=== PATIENT | male | born 1950 | race Caucasian/White ===

== ENCOUNTER 2017-02-04 15:22 | Emergency (ER) | payer MEDICARE, OTHER ==
[2017-02-04 15:31] VITALS: BP 119/97
[2017-02-04] MEDS ORDERED: fentaNYL 100 MCG/2 ML SDV IVPUSH ONE (15:41)
[2017-02-04] MEDS ORDERED: Nitroglycerin/D5W 25 MG/250 ML BOTTLE IV SCH (15:45)
--- NOTE | 2017-02-04 15:45 | EDM.PDOC ---
<Eugene Valentin - Last Filed: 02/04/17 21:41> ED HPI GENERAL MEDICAL PROBLEM - General Chief Complaint: Chest Pain Stated Complaint: [facility] Time Seen by Provider: 02/04/17 15:35 - Related Data Allergies Allergy/AdvReac Type Severity Reaction Status Date / Time No Known Allergies Allergy Verified 02/04/17 15:42 Home Meds: Home Meds Acetaminophen/Butalbital/Caff [Fioricet 325-50-40 MG] 1 tab PO BID PRN 02/04/17 [History] Albuterol Sulfate [Proair Respiclick] 1 dose INH ASDIRECTED PRN 02/04/17 [ History] Allopurinol [Zyloprim] 1 tab PO DAILY 02/04/17 [History] Budesonide/Formoterol Fumarate [Symbicort 160-4.5 Mcg Inhaler] 2 inh INH BID 11/16 [History] Cholecalciferol (Vitamin D3) [Vitamin D3] 1 tab PO DAILY 02/04/17 [History] Diazepam [Valium] 10 mg PO BID PRN 02/04/17 [History] Doxycycline [Vibramycin] 100 mg PO BID #20 cap 02/04/17 [Rx] Famotidine [Pepcid] 20 mg PO BID 02/04/17 [History] Morphine 1 tab PO TID 02/04/17 [History] Omeprazole 1 tab PO DAILY 02/04/17 [History] Ondansetron HCl [Zofran] 1 tab PO Q8HR PRN 02/04/17 [History] QUEtiapine [SEROquel] 1 tab PO BEDTIME 02/04/17 [History] Simvastatin [Zocor] 1 tab PO DAILY 02/04/17 [History] Tiotropium [Spiriva HandiHaler] 1 puff INH DAILY 02/04/17 [History] Course - Vital Signs Last Recorded V/S: Last Vital Signs Temp 37.2 C 02/04/17 15:25 Pulse 100 02/04/17 15:25 Resp 13 02/04/17 15:25 BP 119/97 H 02/04/17 15:25 Pulse Ox 92 L 02/04/17 15:25 - Orders/Labs/Meds Orders: Active Orders 24 hr Category Date Time Status EKG Documentation Completion [RC] STAT Care 02/04/17 15:41 Active EKG Documentation Completion [RC] STAT Care 02/04/17 17:00 Active Abdomen 1V Flat [CR] Stat Exams 02/04/17 20:01 Taken Chest 1V Frontal [CR] Stat Exams 02/04/17 15:41 Taken Labs: Laboratory Tests 02/04/17 02/04/17 02/04/17 Range/Units 15:50 15:50 15:50 WBC 8.93 (4.23-9.07) K/mm3 RBC 3.72 L (4.63-6.08) M/mm3 Hgb 11.3 L (13.7-17.5) gm/L Hct 35.2 L (40.1-51.0) % MCV 94.6 H (79.0-92.2) fl MCH 30.4 (25.7-32.2) pg MCHC 32.1 L (32.2-35.5) g/dl RDW Std Deviation 47.2 H (35.1-43.9) fL Plt Count 195 (163-337) K/mm3 MPV 9.1 L (9.4-12.3) fl Neutrophils % (Manual) 82 H (40-60) % Band Neutrophils % 0 (0-10) % Lymphocytes % (Manual) 16 L (20-40) % Atypical Lymphs % 0 % Monocytes % (Manual) 2 (2-10) % Eosinophils % (Manual) 0 L (0.8-7.0) % Basophils % (Manual) 0 L (0.2-1.2) Platelet Estimate Adequate RBC Morph Comment Normal PT 10.4 (8.0-13.0) SECONDS INR 0.96 Sodium 141 (136-145) mEq/L Potassium 4.1 (3.5-5.1) mEq/L Chloride 107 (98-107) mEq/L Carbon Dioxide 27 (21-32) mEq/L Anion Gap 11.1 (5-15) BUN 21 H (7-18) mg/dL Creatinine 1.1 (0.7-1.3) mg/dL Est Cr Clr Drug Dosing 53.69 mL/min Estimated GFR (MDRD) > 60 (>60) mL/min BUN/Creatinine Ratio 19.1 H (14-18) Glucose 123 H (80-115) mg/dL Calcium 9.3 (8.5-10.1) mg/dL Total Bilirubin 0.8 (0.2-1.0) mg/dL AST 60 H (15-37) U/L ALT 54 (16-63) U/L Alkaline Phosphatase 92 (46-116) U/L CK-MB (CK-2) 4.2 H (0-3.6) ng/ml Troponin I < 0.017 (0.00-0.056) ng/mL Rpn-F-Tpvvcyovghs Pept 68 (0-125) pg/mL Total Protein 6.9 (6.4-8.2) g/dl Albumin 3.9 (3.4-5.0) g/dl Globulin 3.0 gm/dL Albumin/Globulin Ratio 1.3 (1-2) Urine Color (Yellow) Urine Appearance (Clear) Urine pH (5.0-8.0) Ur Specific [place] (1.005-1.030) Urine Protein (Negative) Urine Glucose (UA) (Negative) Urine Ketones (Negative) Urine Occult Blood (Negative) Urine Nitrite (Negative) Urine Bilirubin (Negative) Urine Urobilinogen (0.2-1.0) Ur Leukocyte Esterase (Negative) Urine RBC (0-5) /hpf Urine WBC (0-5) /hpf Ur Epithelial Cells (0-5) /hpf Urine Bacteria (FEW) /hpf Urine Mucus (FEW) /hpf 02/04/17 02/04/17 Range/Units 16:46 18:08 WBC (4.23-9.07) K/mm3 RBC (4.63-6.08) M/mm3 Hgb (13.7-17.5) gm/L Hct (40.1-51.0) % MCV (79.0-92.2) fl MCH (25.7-32.2) pg MCHC (32.2-35.5) g/dl RDW Std Deviation (35.1-43.9) fL Plt Count (163-337) K/mm3 MPV (9.4-12.3) fl Neutrophils % (Manual) (40-60) % Band Neutrophils % (0-10) % Lymphocytes % (Manual) (20-40) % Atypical Lymphs % % Monocytes % (Manual) (2-10) % Eosinophils % (Manual) (0.8-7.0) % Basophils % (Manual) (0.2-1.2) Platelet Estimate RBC Morph Comment PT (8.0-13.0) SECONDS INR Sodium (136-145) mEq/L Potassium (3.5-5.1) mEq/L Chloride (98-107) mEq/L Carbon Dioxide (21-32) mEq/L Anion Gap (5-15) BUN (7-18) mg/dL Creatinine (0.7-1.3) mg/dL Est Cr Clr Drug Dosing mL/min Estimated GFR (MDRD) (>60) mL/min BUN/Creatinine Ratio (14-18) Glucose (80-115) mg/dL Calcium (8.5-10.1) mg/dL Total Bilirubin (0.2-1.0) mg/dL AST (15-37) U/L ALT (16-63) U/L Alkaline Phosphatase (46-116) U/L CK-MB (CK-2) 3.0 (0-3.6) ng/ml Troponin I < 0.017 (0.00-0.056) ng/mL Xcw-P-Mkxirfijnqw Pept (0-125) pg/mL Total Protein (6.4-8.2) g/dl Albumin (3.4-5.0) g/dl Globulin gm/dL Albumin/Globulin Ratio (1-2) Urine Color Yellow (Yellow) Urine Appearance Slt cloudy H (Clear) Urine pH 6.5 (5.0-8.0) Ur Specific [place] 1.025 (1.005-1.030) Urine Protein Negative (Negative) Urine Glucose (UA) Negative (Negative) Urine Ketones Negative (Negative) Urine Occult Blood Negative (Negative) Urine Nitrite Negative (Negative) Urine Bilirubin Negative (Negative) Urine Urobilinogen 1.0 (0.2-1.0) Ur Leukocyte Esterase Negative (Negative) Urine RBC 0-5 (0-5) /hpf Urine WBC 0-5 (0-5) /hpf Ur Epithelial Cells 0-5 (0-5) /hpf Urine Bacteria Occasional (FEW) /hpf Urine Mucus Not seen (FEW) /hpf Meds: Medications Discontinued Medications Generic Name Dose Route Start Last Admin Trade Name Freq PRN Reason Stop Dose Admin Doxycycline Hyclate 100 mg 02/04/17 20:36 02/04/17 21:21 Vibramycin PO 08/05/17 20:37 100 mg ONETIME ONE Administration Fentanyl 50 mcg 02/04/17 15:41 02/04/17 15:52 Sublimaze IVPUSH 02/04/17 15:42 50 mcg ONETIME ONE Administration Nitroglycerin/Dextrose 25 mg in 250 mls @ 3 mls/hr 02/04/17 15:45 02/04/17 17 :00 Nitroglycerin 25 Mg/D5w 250 Ml IV 5 mcg/min ASDIRECTED YURI 3 mls/hr 5 MCG/MIN Infusion Lorazepam 0.5 mg 02/04/17 17:00 02/04/17 17:20 Ativan IVPUSH 02/04/17 17:01 0.5 mg ONETIME ONE Administration Ondansetron HCl 4 mg 02/04/17 19:07 02/04/17 19:12 Zofran IVPUSH 02/04/17 19:08 4 mg ONETIME ONE Administration - Re-Assessments/Exams Free Text/Narrative Re-Assessment/Exam: 02/04/17 20:39 Signed out to me by Dr. Briscoe. KUB shows evidence of R illiac stent, no evidence of obstruction. Patient feeling better, ate a meal. HR approx 70. Well appearing. No further chest pain. Labs reassuring. He did show me an area on his L hand and L pretibial surface where he has abrasions from a fall. There is about 4 cm surrounding erythema/TTP in both areas concerning for early cellulitis - will treat. No SIRS criteria. Discussed return precautions. Departure - Departure Time of Disposition: 20:37 Disposition: Home, Self-Care 01 Clinical Impression: Unstable angina, Cellulitis of left leg without foot Prescriptions: Doxycycline [Vibramycin] 100 mg PO BID #20 cap Instructions: Angina Pectoris, [id number] Referrals: PCP,Not In Area [Primary Care Provider] - Forms: ED Department Discharge Additional Instructions: Evaluation in the emergency room today in regards to development of left precordial chest pain while you were in [place] today. He was kept in the hospital for the last 5 hours to rule out any heart condition since there is a history of coronary disease with multiple myocardial infarctions reported by you and at least 2 stents placed in the past. Cardiac markers are negative over the last 5 hours for any signs of heart related illness certainly no signs of heart attack. Since you're complaining of feeling funny in the head and feeling somewhat dizzy CT of the head was performed and reveals no evidence of intracranial problem such as bleeding or swelling or evidence of stroke. Therefore the nitroglycerin drip that she had been on was stopped which should improve your head ache and had symptoms. You'll be released from the hospital with the idea that you can sleep in your moving van tonight on when you feel better. There are no indications at this time to keep you in the hospital as no emergency condition has been identified. All of your other lab tests proved to be normal. - My Orders Last 24 Hours: My Active Orders 02/04/17 15:41 EKG Documentation Completion [RC] STAT Chest 1V Frontal [CR] Stat 02/04/17 17:00 EKG Documentation Completion [RC] STAT 02/04/17 20:01 Abdomen 1V Flat [CR] Stat - Assessment/Plan Last 24 Hours: My Active Orders 02/04/17 15:41 EKG Documentation Completion [RC] STAT Chest 1V Frontal [CR] Stat 02/04/17 17:00 EKG Documentation Completion [RC] STAT 02/04/17 20:01 Abdomen 1V Flat [CR] Stat <Dagoberto Briscoe - Last Filed: 02/05/17 11:09> ED HPI GENERAL MEDICAL PROBLEM - General Source of Information: Reports: Patient, EMS Notes Reviewed - History of Present Illness INITIAL COMMENTS - FREE TEXT/NARRATIVE: 66-year-old male from [facility] apparently visiting out in [place]. Presents per ambulance reporting central precordial chest pressure pain since about 10:30 this morning. He is a very vague and very poor historian. Has a history of congestive heart failure due to ischemic cardiomyopathy. Has had 2 myocardial infarctions by his history. Has [address] Last stent was placed about a year ago. He uses nitroglycerin patches on intermittent basis when he develops chest pain. Seems to have unstable angina. Currently has a 0.4 g per hour patch in place mid anterior chest on the hairy area of his chest which is not likely doing much good. He was given 224 mg aspirin should by paramedics. He was given Zofran 4 mg IV because of vomiting. Patient states that he is quite thin because he is unable to eat due to gastric ulcers. He is no longer on anticoagulants. There are stopped because of anemia development. Recent colonoscopy took about 3 polyps which were benign. Apparently upper GI endoscopy done within the last 2 months revealed peptic ulcer disease. He is not sure which arteries were involved in terms of myocardial infarction. Still smokes a pack of cigarettes every 3 days. Continues to have cough intermittently had noted some hemoptysis. No blood in his stool. Of note the patient is very cachectic in appearance. He is stressed an [employer] fatigues. Reports current pain is 8 out of 10 left precordial chest. Feels similar to what is expressed in the past with myocardial infarctions. ECG done by triage nurse shows sinus rhythm at 92/m. There is initial poor R-wave progression. The baseline is severely wandering in the inferior leads making them useless in terms of ability to analyze for inferior wall infarct. Onset: Today Onset Date: 02/04/17 Onset Time: 10:30 Duration: Hour(s): Location: Reports: Chest (Left precordial chest pain with no radiation to neck shoulder or through to his back.) Quality: Reports: Ache, Pressure Severity: Moderate Improves with: Reports: None (Rates current pain is 7-8 out of 10.) Worsens with: Reports: None Context: Reports: Other (Has not been very active yet today.). Denies: Activity , Exercise, Lifting, Sick Contact, Trauma Associated Symptoms: Reports: Chest Pain, Cough (See history of present illness) , Loss of Appetite ( chronic cough with sputum due to smoking. poor appetite due to stomach problems. Can't eat much early satiety. ), Malaise, Nausea/ Vomiting, Shortness of Breath (Did vomit en route to hospital. No blood noted in emesis bilious only. On exertion due to COPD. Still smokes 10 cigarettes daily). Denies: Confusion, Fever/Chills Treatments CRUMB PACKER: Reports: Aspirin (Was given 324 mg of aspirin per paramedics as well as Zofran 4 mg IV.) Left Lower Chest Pain Score (Numeric/FACES): 6 Past Medical History Cardiovascular History: Reports: CAD (Due to ischemia.), Cardiomyopathy, High Cholesterol, [place] (Reports greater than 3 myocardial infarctions.), Stents ( 2 stents) Respiratory History: Reports: Bronchitis, Recurrent, COPD Gastrointestinal History: Reports: GI Bleed (Peptic ulcer disease), Other (See Below) (3 polyps removed from colon on last colonoscopy within the last 2 months.) Musculoskeletal History: Reports: Osteoarthritis, Osteoporosis Neurological History: Reports: CVA (Reports he was been told that he has had multiple cerebrovascular accidents on MRI.) Social & Family History - Tobacco Use Smoking Status *Q: Current Every Day Smoker (Early smoking a pack every 3 days.) ED ROS GENERAL - Review of Systems Review Of Systems: See Below Constitutional: Reports: Malaise, Weakness, Fatigue, Decreased Appetite ( Reports reports early satiety can eat much because his stomach bothers him too much.), Weight Loss. Denies: Fever, Chills HEENT: Reports: No Symptoms Respiratory: Reports: Shortness of Breath, Wheezing (Occasionally uses inhalers. ), Cough, Sputum (Chronically), Hemoptysis (Occasionally) Cardiovascular: Reports: Chest Pain (See history of present illness), Blood Pressure Problem, Dyspnea on Exertion (Chronically), Lightheadedness. Denies: Claudication, Edema, Orthopnea (Usually blood pressure is low due to medications he is on) Endocrine: Reports: Fatigue GI/Abdominal: Reports: Abdominal Pain (Upper abdominal pain good portion of the time. Worsened by eating), Decreased Appetite, Nausea, Vomiting (Vomited en route to the hospital bilious without blood) : Reports: Frequency Musculoskeletal: Reports: Neck Pain, Back Pain, Joint Pain (Hips and knees at times) Skin: Reports: No Symptoms Neurological: Reports: Dizziness, Weakness (Generalized). Denies: Confusion, Headache, Numbness, Paresthesia, Pre-Existing Deficit, Seizure, Syncope, Tingling, Tremors, Trouble Speaking, Difficulty Walking Hematologic/Lymphatic: Reports: Anemia Immunologic: Reports: No Symptoms ED EXAM, GENERAL - Physical Exam Exam: See Below Exam Limited By: Other (Very vague and poor historian.) General Appearance: Mild Distress, Cachetic Eye Exam: Bilateral Eye: Normal Inspection Throat/Mouth: Other Head: Atraumatic, Normocephalic (Tongue is mildly dry and coated) Neck: Normal Inspection, Supple, Non-Tender, Full Range of Motion. No: Carotid Bruit, Lymphadenopathy (L), Lymphadenopathy (R), Thyromegaly Respiratory/Chest: No Respiratory Distress, Lungs Clear, Normal Breath Sounds, Chest Non-Tender. No: Rhonchi, Wheezing Cardiovascular: Normal Peripheral Pulses, Regular Rate, Rhythm, No Edema, No Gallop, No Murmur Peripheral Pulses: 2+: Posterior Tibial (L), Posterior Tibial (R), Dorsalis Pedis (L), Dorsalis Pedis (R) GI/Abdominal: Normal Bowel Sounds, Tender. No: Distended (Epigastrium.), Guarding, Rigid, Rebound, Abnormal Bowel Sounds, Hernia Back Exam: Normal Inspection, Full Range of Motion. No: CVA Tenderness (L), CVA Tenderness (R) Extremities: Normal Inspection, Normal Range of Motion, Non-Tender, No Pedal Edema Neurological: Alert, Oriented, CN II-XII Intact, Normal Cognition, Normal Gait Psychiatric: Anxious, Flat Affect Skin Exam: Warm, Dry, Intact, Normal Color, No Rash EKG INTERPRETATION EKG Date: 02/04/17 Time: 15:30 Rhythm: NSR Rate (Beats/Min): 96 Mccormick: RAD-Right Mccormick Deviation (Borderline at 87.) P-Wave: Present QRS: Other (Initial poor R-wave progression.) ST-T: Other (Wondering baseline particularly in leads II, III, and F aVF make it impossible to utilize these leads for analysis. Questionable ST segment elevation in aVF and 3.) QT: Normal Course - Orders/Labs/Meds Orders: Active Orders 24 hr Category Date Time Status EKG Documentation Completion [RC] STAT Care 02/04/17 15:41 Active EKG Documentation Completion [RC] STAT Care 02/04/17 17:00 Active Abdomen 1V Flat [CR] Stat Exams 02/04/17 20:01 Taken Chest 1V Frontal [CR] Stat Exams 02/04/17 15:41 Taken Labs: Laboratory Tests 02/04/17 02/04/17 02/04/17 Range/Units 15:50 15:50 15:50 WBC 8.93 (4.23-9.07) K/mm3 RBC 3.72 L (4.63-6.08) M/mm3 Hgb 11.3 L (13.7-17.5) gm/L Hct 35.2 L (40.1-51.0) % MCV 94.6 H (79.0-92.2) fl MCH 30.4 (25.7-32.2) pg MCHC 32.1 L (32.2-35.5) g/dl RDW Std Deviation 47.2 H (35.1-43.9) fL Plt Count 195 (163-337) K/mm3 MPV 9.1 L (9.4-12.3) fl Neutrophils % (Manual) 82 H (40-60) % Band Neutrophils % 0 (0-10) % Lymphocytes % (Manual) 16 L (20-40) % Atypical Lymphs % 0 % Monocytes % (Manual) 2 (2-10) % Eosinophils % (Manual) 0 L (0.8-7.0) % Basophils % (Manual) 0 L (0.2-1.2) Platelet Estimate Adequate RBC Morph Comment Normal PT 10.4 (8.0-13.0) SECONDS INR 0.96 Sodium 141 (136-145) mEq/L Potassium 4.1 (3.5-5.1) mEq/L Chloride 107 (98-107) mEq/L Carbon Dioxide 27 (21-32) mEq/L Anion Gap 11.1 (5-15) BUN 21 H (7-18) mg/dL Creatinine 1.1 (0.7-1.3) mg/dL Est Cr Clr Drug Dosing 53.69 mL/min Estimated GFR (MDRD) > 60 (>60) mL/min BUN/Creatinine Ratio 19.1 H (14-18) Glucose 123 H (80-115) mg/dL Calcium 9.3 (8.5-10.1) mg/dL Total Bilirubin 0.8 (0.2-1.0) mg/dL AST 60 H (15-37) U/L ALT 54 (16-63) U/L Alkaline Phosphatase 92 (46-116) U/L CK-MB (CK-2) 4.2 H (0-3.6) ng/ml Troponin I < 0.017 (0.00-0.056) ng/mL Zib-H-Lhjbgntyzab Pept 68 (0-125) pg/mL Total Protein 6.9 (6.4-8.2) g/dl Albumin 3.9 (3.4-5.0) g/dl Globulin 3.0 gm/dL Albumin/Globulin Ratio 1.3 (1-2) Urine Color (Yellow) Urine Appearance (Clear) Urine pH (5.0-8.0) Ur Specific [place] (1.005-1.030) Urine Protein (Negative) Urine Glucose (UA) (Negative) Urine Ketones (Negative) Urine Occult Blood (Negative) Urine Nitrite (Negative) Urine Bilirubin (Negative) Urine Urobilinogen (0.2-1.0) Ur Leukocyte Esterase (Negative) Urine RBC (0-5) /hpf Urine WBC (0-5) /hpf Ur Epithelial Cells (0-5) /hpf Urine Bacteria (FEW) /hpf Urine Mucus (FEW) /hpf 02/04/17 02/04/17 Range/Units 16:46 18:08 WBC (4.23-9.07) K/mm3 RBC (4.63-6.08) M/mm3 Hgb (13.7-17.5) gm/L Hct (40.1-51.0) % MCV (79.0-92.2) fl MCH (25.7-32.2) pg MCHC (32.2-35.5) g/dl RDW Std Deviation (35.1-43.9) fL Plt Count (163-337) K/mm3 MPV (9.4-12.3) fl Neutrophils % (Manual) (40-60) % Band Neutrophils % (0-10) % Lymphocytes % (Manual) (20-40) % Atypical Lymphs % % Monocytes % (Manual) (2-10) % Eosinophils % (Manual) (0.8-7.0) % Basophils % (Manual) (0.2-1.2) Platelet Estimate RBC Morph Comment PT (8.0-13.0) SECONDS INR Sodium (136-145) mEq/L Potassium (3.5-5.1) mEq/L Chloride (98-107) mEq/L Carbon Dioxide (21-32) mEq/L Anion Gap (5-15) BUN (7-18) mg/dL Creatinine (0.7-1.3) mg/dL Est Cr Clr Drug Dosing mL/min Estimated GFR (MDRD) (>60) mL/min BUN/Creatinine Ratio (14-18) Glucose (80-115) mg/dL Calcium (8.5-10.1) mg/dL Total Bilirubin (0.2-1.0) mg/dL AST (15-37) U/L ALT (16-63) U/L Alkaline Phosphatase (46-116) U/L CK-MB (CK-2) 3.0 (0-3.6) ng/ml Troponin I < 0.017 (0.00-0.056) ng/mL Hmm-U-Bvbysvswdxv Pept (0-125) pg/mL Total Protein (6.4-8.2) g/dl Albumin (3.4-5.0) g/dl Globulin gm/dL Albumin/Globulin Ratio (1-2) Urine Color Yellow (Yellow) Urine Appearance Slt cloudy H (Clear) Urine pH 6.5 (5.0-8.0) Ur Specific [place] 1.025 (1.005-1.030) Urine Protein Negative (Negative) Urine Glucose (UA) Negative (Negative) Urine Ketones Negative (Negative) Urine Occult Blood Negative (Negative) Urine Nitrite Negative (Negative) Urine Bilirubin Negative (Negative) Urine Urobilinogen 1.0 (0.2-1.0) Ur Leukocyte Esterase Negative (Negative) Urine RBC 0-5 (0-5) /hpf Urine WBC 0-5 (0-5) /hpf Ur Epithelial Cells 0-5 (0-5) /hpf Urine Bacteria Occasional (FEW) /hpf Urine Mucus Not seen (FEW) /hpf Meds: Medications Discontinued Medications Generic Name Dose Route Start Last Admin Trade Name Freq PRN Reason Stop Dose Admin Doxycycline Hyclate 100 mg 02/04/17 20:36 02/04/17 21:21 Vibramycin PO 02/04/17 20:37 100 mg ONETIME ONE Administration Fentanyl 50 mcg 02/04/17 15:41 02/04/17 15:52 Sublimaze IVPUSH 02/04/17 15:42 50 mcg ONETIME ONE Administration Nitroglycerin/Dextrose 25 mg in 250 mls @ 3 mls/hr 02/04/17 15:45 02/04/17 17 :00 Nitroglycerin 25 Mg/D5w 250 Ml IV 5 mcg/min ASDIRECTED YURI 3 mls/hr 5 MCG/MIN Infusion Lorazepam 0.5 mg 02/04/17 17:00 02/04/17 17:20 Ativan IVPUSH 02/04/17 17:01 0.5 mg ONETIME ONE Administration Ondansetron HCl 4 mg 02/04/17 19:07 02/04/17 19:12 Zofran IVPUSH 02/04/17 19:08 4 mg ONETIME ONE Administration - Radiology Interpretation Free Text/Narrative:: 66-year-old male who appears to be in rather chronic poor health presents to the ED after he developed central precordial chest pain at about 10:30 this morning. He is visiting from [facility] and is currently in [place]. Brought to the hospital per [place] ambulance. He gives a history of coronary disease with 2 previous myocardial infarctions and 2 stents. Last MRI was about a year ago. Apparently has a low ejection fraction and a cardiomyopathy from the ischemic damage. Has COPD he continues to smoke pack cigarettes every 3 days. He recently had problems with anemia and GI bleeding and his Xarelto was stopped recent EGD we can made a peptic ulcer. He has trouble eating due to early satiety and pain. So had a colonoscopy with 3 polyps resected with no cancers polyps identified. He presents with left precordial chest pressure discomfort. He is placed a nitroglycerin patch on his chest which he states he does so when he develops pain like this. By history has unstable angina. Currently has a 4 mcg/m patch on his chest. Paramedics gave him Zofran 4 mg IV due to him vomiting. He also had 324 mg aspirin chewed. ECG is unclear in terms that the PICC limb leads show marked wondering of the baseline impossible to interpret the inferior leads. Initial poor R-wave progression. Sinus rhythm otherwise. No signs of ischemia in the precordial leads. He states current pain is similar to what is experiencing when he has myocardial infarction. Plan nitro drip at 10 mcg/m. Routine labs include cardiac markers. Given fentanyl 50 g IV for pain relief. He has had Zofran 4 mg IV by paramedics. - Re-Assessments/Exams Free Text/Narrative Re-Assessment/Exam: 02/04/17 16:17 chest x-ray reveals hyperinflated lung yoo. Visualized portions of the lungs are clear. Silhouette is normal. There appears to be a large amount of air within the stomach which is elevating the left hemidiaphragm leaflet. He reports that his pain is down to a 1 or 2 out of 10 on current medications. Blood pressure is 107 on 77 with O2 sats of 96% on room air. Heart rate is 88 and sinus. 02/04/17 16:42 labs reveal a white count of 8.93 with 82% neutrophils and 0 bands. Hemoglobin is a little low 11.3 with hematocrit of 35.2. Platelets are normal 195,000. Coags are normal. Sodium 141 potassium 4.1. Anion gap is 11.1. Glucose 123. AST is 16 ELT is 54. Troponin is less than 0.017. CK-MB fraction is slightly elevated at 4.2. Creatinine is 1.1 EGFR greater than 60. 02/04/17 17:01 patient reports he doesn't feel right in his head. He will not describe it as a headache. BP is 116 on 79. I will reduce his nitro drip to 5 mcg/m. Otic enzymes will ordered for 1800 hrs. repeat ECG at this time. Will give Ativan 0.5 mg IV. 02/04/17 18:06 patient is complaining that he still feels fuzzy in his head. Nurses feel that his speech is perhaps a little more garbled than it had been in the past. He has no focal signs of weakness anywhere. He reports she's had multiples lacunar infarcts reported by MRI in the past. His anticoagulants were recently discontinued because of upper GI bleed. His blood pressure at this time is 103/66 with sats of 99% and heart rate of 88/m. Will have CT of his head performed. 02/04/17 18:52 nurses are changing to get old records particular MRI reports on his brain from hospital in [facility]. CT done now is essentially within normal limits. There is some diffuse small vessel ischemic changes in both basal ganglia without any definitive lacunar infarcts and certainly no evidence of intracranial bleeding or mass effect. 02/04/17 19:06 second set of cardiac markers are actually better than they were the first time to troponin remains less than 0.017 and CK-MB fraction came down to 3 for the nitro drip will be discontinued. I will give him Zofran 4 mg IV for nausea this time. I will try and see we can fix him up something to eat. The problem will be finding a place to stay for tonight. He is traveling by moving van alone from [facility] to [facility]. So far not been able to locate any of the old records from [facility] where he reports he has been in the past. 02/04/17 19:[address] and MRI reports from hospital in [facility]. They all reported as normal although one did suggest a questionable lacunar infarct in the left basal ganglia. This certainly not apparent on today's CT. Therefore there is no evidence of recurrent CVAs as the patient had indicated. My sense is that he is malingering. Plan at this time will be to get him something to eat and then find him a cab ride back to the door where he can sleep in his moving van before he decides to move on. There are no indications to admit him to hospital at this time. 02/04/17 20:00 now patient is complaining complaining of left-sided abdominal pain. KUB ordered. I will discuss case with Dr. Ting Valentin who is now taking over care as it is change of shift. My sense is this gentleman is still looking for a place to stay versus going back to his moving van. I malingering. Worse case scenario he stays in the ER overnight and is discharged in the morning. He does not need to be admitted to the hospital. Departure - Departure Condition: Fair - My Orders Last 24 Hours: My Active Orders 02/04/17 15:41 EKG Documentation Completion [RC] STAT Chest 1V Frontal [CR] Stat 02/04/17 17:00 EKG Documentation Completion [RC] STAT 02/04/17 20:01 Abdomen 1V Flat [CR] Stat - Assessment/Plan Last 24 Hours: My Active Orders 02/04/17 15:41 EKG Documentation Completion [RC] STAT Chest 1V Frontal [CR] Stat 02/04/17 17:00 EKG Documentation Completion [RC] STAT 02/04/17 20:01 Abdomen 1V Flat [CR] Stat
[2017-02-04] MEDS ORDERED: LORazepam 2 MG/ML MDV IVPUSH ONE (17:00)
--- NOTE | 2017-02-04 18:47 | CT ---
Head CT Technique: Multiple axial sections through the brain were obtained. Intravenous contrast was not utilized. Findings: Ventricles along with basal cisterns and sulci over the convexities are within normal limits for the patient's age. No abnormal parenchymal densities are seen. No evidence of intracranial hemorrhage is seen. No midline shift or mass effect is seen. Bone window settings were reviewed which shows no discrete calvarial abnormality. Visualized sinuses shows minimal mucosal thickening within the ethmoid sinuses which is felt to be incidental. Impression: 1. Sinus findings which are felt to be incidental. 2. No acute intracranial abnormality is identified. Diagnostic code #2
[2017-02-04] MEDS ORDERED: Ondansetron 4 MG/2 ML SDV IVPUSH ONE (19:07)
[2017-02-04] MEDS ORDERED: Doxycycline 100 MG Cap PO ONE (20:36)
--- NOTE | 2017-02-05 17:29 | CR ---
Chest: Portable view of the chest was obtained. Comparison: No previous study. Heart size and mediastinum are within normal limits for portable technique. Slight density is noted within the left mid to lower lung either due to atelectasis or scarring. Lungs otherwise are clear but slightly hyperinflated. Bony structures are grossly intact. Impression: 1. Slight atelectasis or scarring within the left mid to lower lung. 2. Probable emphysematous change. Diagnostic code #2
--- NOTE | 2017-02-05 17:29 | CR ---
Abdomen: Supine view of the abdomen was obtained. Comparison: No previous study. Abdominal wall surgery is seen. Right iliac stent is noted. Bony structures are within normal limits for the patient's age. Slight vascular calcification is noted. Bowel gas pattern appears normal. Impression: 1. Incidental findings as noted above. Nothing acute is identified. Diagnostic code #2
== END 2017-02-04 21:33 | disposition home or self-care (01) ==
LOC: JD.ED 15:22
DX: I20.0 Unstable angina (principal); L03.116 Cellulitis of left lower limb; I50.9 Heart failure, unspecified; I25.2 Old myocardial infarction; E78.00 Pure hypercholesterolemia, unspecified; F17.210 Nicotine dependence, cigarettes, uncomplicated; J44.9 Chronic obstructive pulmonary disease, unspecified; M19.90 Unspecified osteoarthritis, unspecified site; Z86.73 Personal history of transient ischemic attack (TIA), and cerebral infarction without residual deficits; Z79.899 Other long term (current) drug therapy; Z95.5 Presence of coronary angioplasty implant and graft
CPT/HCPCS: 36415; 70450; 71010; 74000; 80053; 81001; 82553; 83880; 84484; 85025; 85610; 93005; 96365; 96366; 96375; 99285; A9270; J2060; J2405; J3010; 99284